=== PATIENT | male | born 1965 ===

== ENCOUNTER 2018-10-11 08:45 | Outpatient (CLI) | payer OTHER ==
[~2018-10-11] VITALS: Ht 179.1 cm; Wt 81.6 kg
[2018-10-11] VITALS (22 sets, daily range): BP systolic 114–134; BP diastolic 56–78
[~2018-10-11 08:45] MED LIST: KLONOPIN0.5 MG ORAL
[2018-10-11] MEDS ORDERED: [UNRECOGNIZED DRUG - OTHER] PO (09:17)
[2018-10-11] MEDS ORDERED: IRON 100 PLUS1 EACH PO (09:17)
[2018-10-11] MEDS ORDERED: IBUPROFEN600 MG ORAL (09:17)
[2018-10-11] MEDS ORDERED: TURMERIC 500 M1 EAC1 PO (09:17)
[2018-10-11] MEDS ORDERED: Lidocaine 2% 20mg/ml/Epi 0.005mg/ml 20ml vial INJ ONE (09:45)
[2018-10-11] MEDS ORDERED: ceFAZolin sod 1 GM in D5W 55 ML IVPB ONE (09:45)
[2018-10-11] MEDS ORDERED: Heparin1,000 units/500ml Premix(Conc:2 units/ml) INJ ONE (09:45)
[2018-10-11 10:13] LABS: BASOPHILS % (AUTO) 0.4 % (0.0-2.0); EOSINOPHILS % (AUTO) 0.6 % (0.0-3.0); HEMATOCRIT 36.1 % (42.0-52.0); HEMOGLOBIN 11.7 G/DL (14.2-18.0); LYMPHOCYTES % (AUTO) 12.4 % (20.0-45.0); MEAN CORPUSCULAR VOLUME 88 FL (80-99); MONOCYTES % (AUTO) 7.1 % (1.0-10.0); NEUTROPHILS % (AUTO) 79.6 % (45.0-75.0); PLATELET COUNT 318 K/UL (150-450); RED BLOOD COUNT 4.09 M/UL (4.70-6.10); RED CELL DISTRIBUTION WIDTH 14.6 % (11.6-14.8); WHITE BLOOD COUNT 6.1 K/UL (4.8-10.8)
[2018-10-11 10:42] LABS: ANION GAP 9 mmol/L (5-15); BLOOD UREA NITROGEN 13 mg/dL (7-18); CALCIUM 9.8 MG/DL (8.5-10.1); CARBON DIOXIDE 24 MMOL/L (21-32); CHLORIDE 107 MMOL/L (98-107); CREATININE 1.1 MG/DL (0.55-1.30); POTASSIUM 4.4 MMOL/L (3.5-5.1); SODIUM 140 MMOL/L (136-145)
--- NOTE | 2018-10-11 10:43 | Pre-Procedure Note/Attestation ---
Pre-Procedure Note/Attestation Complete Prior to Procedure Planned Procedure: not applicable Procedure Narrative: Port catheter placement Indications for Procedure Pre-Operative Diagnosis: Colon cancer Attestation I attest that I discussed the nature of the procedure; its benefits; risks and complications; and alternatives (and the risks and benefits of such alternatives ), prior to the procedure, with the patient (or the patient's legal technical sales representative). I attest that, if there was a reasonable possibility of needing a blood transfusion, the patient (or the patient's legal technical sales representative) was given the [facility] standardized written summary, pursuant to the Martín Lisa Blood Safety Act ([place] Health and Safety Code # 1645, as amended). I attest that I re-evaluated the patient just prior to the surgery and that there has been no change in the patient's H&P, except as documented below: Fermín West MD Oct 11, 2018 10:43
[2018-10-11] MEDS ORDERED: Midazolam 2mg/2ml Inj ONE (10:45)
[2018-10-11] MEDS ORDERED: fentaNYL 100 mcg/2 mL IV ONE (10:45)
--- NOTE | 2018-10-11 11:20 | Moderate Sedation - Procedural ---
Moderate Sedation HPI Home Medication Reported Medications Ibuprofen* (MOTRIN*) 600 Mg Tablet, 600 MG ORAL Q12HR PRN for For Pain, #30 TAB 0 Refills 10/11/18 [Pyloricil] No Conflict Check, 1 CAP PO DAILY 10/11/18 Iron,Carbonyl/Vit C/Vit B12/Fa (IRON 100 PLUS TABLET) 1 Each Tablet, 1 EACH PO DAILY, TAB 10/11/18 Turmeric/Turmeric Root Extract (Turmeric 500 mg Capsule) 1 Each Capsule, 1 EACH PO DAILY, CAP 10/11/18 Patient History Allergies: Coded Allergies: No Known Allergies (Unverified , 10/11/18) Pre-Procedural Mod Sedation Date: Oct 11, 2018 Pre-Assessment Time: 10:00 Pre-Sedation Assessment: Eval. Immed. Prior to Sed Airway Assessment (Malampati): II Heart: normal Lungs: normal Abdomen: normal Extremities: normal Pre-op Diagnosis: rectal ca Evaluation Hx of untoward rxns to mod sed: No Procedures/Plans: Radiology Plan for Moderate Sedation: Midazolam, Fentanyl ASA Score: II Informed Consent The nature of the procedure/sedation; its benefits; risks and complications; and alternatives (and the risks and benefits of such alternatives) were discussed with the patient (or their legal hospital insurance representative), prior to the procedure. All questions were answered to the patient's (or their legal hospital insurance representative's) satisfaction and the patient (or their legal hospital insurance representative) gave informed consent to the procedure. I attest that I re-evaluated the patient just prior to the surgery and that there has been no change in the patient's H&P, except as documented below: Post Procedure Assessment Post Procedure TIme: 12:20 Communication: No Apparent Limitation Mental Status: Awake Respiration: Unlabored Skin Condition: WNL Adomen: WNL Nausea: NO Vomiting: NO Fermín West MD Oct 11, 2018 11:20
[2018-10-11] MEDS ORDERED: fentaNYL 100 mcg/2 mL IV PRN (11:25)
[2018-10-11] MEDS ORDERED: Midazolam 2mg/2ml Inj IVP PRN (11:25)
--- NOTE | 2018-10-11 12:23 | Brief Operative Note ---
Immediate Post Operative Note Operative Note Pre-op Diagnosis: Colon cancer Procedure: R chest port catheter Post-op Diagnosis: same as pre-op Findings: consistent w/pre-op dx studies Surgeon: Denis Mcdermott Anesthesia: moderate sedation Specimen: none Complications: none Fluids: none Implant(s) used?: Yes - 8F angiodynamic bioflo Fermín Mcdermott MD Oct 11, 2018 12:23
--- NOTE | 2018-10-11 15:23 | Diagnostic Imaging Report ---
Indication: Reason For Exam: PAIN Technique: Patient was given preprocedure antibiotics. Informed consent obtained prior to commencement of the procedure. Total sterile technique, including sterile gloves and hand hygiene, hat, mask, sterile gown, large sterile drape, and preparation with 2% chlorhexidine utilized. Procedural timeout performed. Ultrasound demonstrates patent compressible right internal jugular vein. Under real-time ultrasound guidance, and after local anesthesia with 1% lidocaine, puncture right internal jugular vein using 21-gauge micropuncture needle, passage 0.018 guidewire. This was used to measure the appropriate length of the intravascular portion of the catheter. 4 [place] micropuncture catheter inserted and then left in place. A location in the right chest 2 fingerbreadths below the clavicle was then selected for the chest pocket. The intended incision and pocket were anesthetized with 1% lidocaine with bicarbonate and epinephrine. Incision was made. Blunt dissection was used to create a pocket in the subcutaneous soft tissues. 2 3-0 Vicryl anchor sutures were placed in the floor of the pocket and connected to the reservoir of the 8 [place] [employer] Bio[employer] port catheter. The intended subcutaneous tunnel was anesthetized. A tunneling device was used to pull the catheter from the chest pocket to the neck dermatotomy. The catheter was then connected to the reservoir, and the integrity of the system was tested by injecting saline into the reservoir. The catheter was then cut tointravascular length of 14 cm-total 21 cm. A 0.035 guidewire was inserted into the right neck introducer under fluoroscopic guidance and directed into the inferior vena cava. Over it was passed a peel-away sheath. The guidewire and dilator were moved. The catheter was inserted into the peel-away sheath, and the peel-away sheath was removed. Fluoroscopic visualization demonstrated adequate position of the catheter tip, at the cavoatrial junction. An image was saved. The integrity of the system was again tested by aspiration of blood from and injection of heparinized saline into the reservoir. The anchor sutures were then tied and cut. The chest pocket and incision were closed using deep 3-0 interrupted Vicryl and superficial 4-0 interrupted Vicryl sutures. The skin of the incision and of the neck dermatotomy was closed with Dermabond. The patient tolerated the procedure well, without immediate complication. Fluoroscopy time 51.9 seconds Dose area product [id number] [id number] Comparison: None Findings: Completion image documents satisfactory catheter course and position, tip at the cavoatrial junction Impression: Successful placement of right chest 8 [place] port catheter under sonographic and fluoroscopic supervision, as described
== END 2018-10-11 10:45 | disposition home or self-care (01) ==
LOC: RAD 08:45 → EDSTATUS 09:00 → RAD 10:45
DX: R52 Pain, unspecified (principal); C18.9 Malignant neoplasm of colon, unspecified
CPT/HCPCS: 36415; 36571; 76000; 80048; 85025; 85610; 85730; J0690; J1644; J2250; J3010